=== PATIENT | male | born 1990 | race African-American/Black ===

== ENCOUNTER 2023-04-27 18:27 | Emergency (ER) | payer SELFPAY ==
[2023-04-27 20:53] LABS: CORONAVIRUS COVID-19 NAA NEGATIVE (NEGATIVE); INFLUENZA A NAA NEGATIVE (NEGATIVE); INFLUENZA B NAA NEGATIVE (NEGATIVE)
[2023-04-27] MEDS: Amoxicillin/Clavulanate K 875-125 MG Tab PO STA (21:53)
== END 2023-04-27 22:04 | disposition home or self-care (01) ==
LOC: MW.ED 18:27
DX: J01.90 Acute sinusitis, unspecified (principal); R03.0 Elevated blood-pressure reading, without diagnosis of hypertension; Z76.0 Encounter for issue of repeat prescription; J45.909 Unspecified asthma, uncomplicated; Z79.899 Other long term (current) drug therapy
CPT/HCPCS: 0240U; 99283; A9270